=== PATIENT | female | born 1950 | race Caucasian/White ===

== ENCOUNTER 2017-01-06 05:07 | Day surgery (SDC) | payer BC ==
[~2017-01-06 05:07] MED LIST: ALEVE220 MG PO; CALCIUM; CALTRA600D PO; LECITHIN1 TAB OR; LEVOTHYROXIN50 MCG PO; METHOC750B PO; MOBIC15 MG PO; MULTIPLE VIT PO; NEUR300 PO; SYN075 PO; SYN1 PO; ULTRAM50 PO
== END 2017-01-06 08:06 | disposition home or self-care (01) ==
LOC: SDC 05:07
PROVIDERS: Orthopaedic Surgery
PROC: 3E0R3BZ Introduction of Anesthetic Agent into Spinal Canal, Percutaneous Approach (ICD-10-PCS; 2017-01-06)
PROC: B01BYZZ Fluoroscopy of Spinal Cord using Other Contrast (ICD-10-PCS; 2017-01-06)
PROC: 3E0R33Z Introduction of Anti-inflammatory into Spinal Canal, Percutaneous Approach (ICD-10-PCS; principal; 2017-01-06 08:00)
DX: M54.16 Radiculopathy, lumbar region (principal); E03.9 Hypothyroidism, unspecified; Z90.710 Acquired absence of both cervix and uterus; Z98.890 Other specified postprocedural states
CPT/HCPCS: J1040; J2250; J3010; Q9967

== ENCOUNTER 2017-02-03 06:27 | Observation (INO) | payer BC ==
[2017-02-01 11:57] LABS: HEMATOCRIT 41.8 % (36.0-48.0); HEMOGLOBIN 13.6 g/dL (12.0-16.0)
[2017-02-01 12:09] LABS: BUN (BLOOD UREA NITROGEN) 11 MG/DL (6-23); CALCIUM, SERUM 9.8 MG/DL (8.5-10.4); CHLORIDE, SERUM 109 MMOL/L (96-112); CO2 (CARBON DIOXIDE) 31 MMOL/L (24-34); CREATININE 0.86 MG/DL (0.55-1.02); GFR AFRICAN AMERICAN 82 ML/MIN (>=60); GFR NON AFRICAN AMERICAN 70 ML/MIN (>=60); GLUCOSE, SERUM 78 MG/DL (60-99); POTASSIUM, SERUM 4.2 MMOL/L (3.5-5.3); SODIUM, SERUM 144 MMOL/L (135-148)
--- NOTE | ~2017-02-03 | OP ---
Record Of Operation [facility] [address] [place]. [address] NAME: TIMUR FUENTES : 50 STATUS : DIS Chavez PAT#: [id number] AGE: 66 ADM/REG DATE : 02/03/17 MR#: [id number] REPORT SERV DATE: 02/09/17 DICTATED BY: GEGE SCHRADER II DATE: 02/09/17 REPORT STATUS : Draft TRANSCRIBED BY: MODLast DATE: 02/09/17 DATE OF PROCEDURE: 02/03/2017 PREOPERATIVE DIAGNOSES: 1. History of L5-S1 microdiskectomy, remote. 2. Stenosis, L3-4, L4-5. 3. Lower extremity neurogenic claudication. POSTOPERATIVE DIAGNOSES: 1. History of L5-S1 microdiskectomy, remote. 2. Stenosis, L3-4, L4-5. 3. Lower extremity neurogenic claudication. PROCEDURE: 1. Lumbar laminectomy, L3-4, L4-5. 2. Use of the microscope and stereotactic spinal imaging. SURGEON: Gege Schrader M.D. FLUIDS: 1100 mL LR. ESTIMATED BLOOD LOSS: 20 mL. DRAINS: None. COMPLICATIONS: None. ANTIBIOTIC: Preoperatively. PREOPERATIVE HISTORY: This is a very friendly 66-year-old female who did well following her lumbar microdiskectomy and her anterior cervical surgery. She now presents with the recurrent leg pain consistent with stenosis. We discussed the risks and benefits and she wished to proceed. We discussed the alternatives of a complete facetectomy and fusion if she were to fail the simple laminectomy. DESCRIPTION OF PROCEDURE: After informed consent was obtained, the patient was brought to the operating room at her request and general anesthesia achieved. She was placed in prone position, and the back was prepped and draped in a sterile fashion. The stereotactic spinal pin was placed into the iliac crest on the left followed by completion of the intraoperative CT scan. The stereotactic guidance was then used throughout the case. At this point, the minimally invasive incision was performed and the dissection performed on the right. The minimally invasive quadrant retractor was placed, and the microscope brought into place. The soft tissue was removed from the interlaminar spaces at L4-5 and L3-4. With the microscope now in place, the laminectomy was initiated with the high-speed bur. The spinal laminar junction was taken down with the high-speed bur and the Kerrison rongeurs Record Of Operation [facility] [address] [place]. [address] NAME: TIMUR FUENTES : 50 STATUS : DIS Chavez PAT#: [id number] AGE: 66 ADM/REG DATE : 02/03/17 MR#: [id number] REPORT SERV DATE: 02/09/17 DICTATED BY: GEGE SCHRADER II DATE: 02/09/17 REPORT STATUS : Draft TRANSCRIBED BY: RUBEN DATE: 02/09/17 and the curettes. The central decompression was now carried out through this unilateral approach. The central canal was decompressed with removing the ligamentum flavum at L3-4. The dura was well decompressed centrally and now the lateral recesses were decompressed with partial facetectomy. The L4 nerve roots were well decompressed in the lateral recesses. Next, the L4-5 level was treated in a similar manner with laminectomy and the central decompression with a high-speed bur and the Kerrison rongeurs. Once again, the dura was well decompressed, and the L5 nerve roots well decompressed in the lateral recesses. Overall, I was pleased with the decompression at both levels. Irrigation was performed and hemostasis confirmed followed by closure. Standard dressings were applied. The patient was then extubated and transferred to PACU in standard condition. MARIXA/RUBEN Gege Schrader II, M.D. / [id number] CC: Jose Farmer II, M.D.
[2017-02-04] MEDS ORDERED: V2 PO (09:16)
[2017-02-04] MEDS ORDERED: PCET PO (09:17)
== END 2017-02-04 11:01 | disposition home or self-care (01) ==
LOC: SDC 06:27 → SDC/OF 11:25 → 1SO 13:31
PROVIDERS: Orthopaedic Surgery
PROC: 01NB0ZZ Release Lumbar Nerve, Open Approach (ICD-10-PCS; 2017-02-03)
PROC: 0SB20ZZ Excision of Lumbar Vertebral Disc, Open Approach (ICD-10-PCS; principal; 2017-02-03 08:15)
DX: M48.06 Spinal stenosis, lumbar region (principal); M51.16 Intervertebral disc disorders with radiculopathy, lumbar region; E03.9 Hypothyroidism, unspecified; G43.909 Migraine, unspecified, not intractable, without status migrainosus; I73.9 Peripheral vascular disease, unspecified; Z98.890 Other specified postprocedural states; Z90.710 Acquired absence of both cervix and uterus; Z82.49 Family history of ischemic heart disease and other diseases of the circulatory system
CPT/HCPCS: 80048; 82962; 85014; 85018; 88304; 88311; 93005; 96374; 96375; 96376; A9270-GY; G0378; J0690; J1030; J2250; J2405; J2710; J3010